=== PATIENT | male | born 1975 | race Caucasian/White ===

== ENCOUNTER 2021-05-22 14:29 | Outpatient (REF) | payer OTHER, SELFPAY ==
[2021-05-22 16:35] LABS: MANUAL DIFF FLAG NO
[2021-05-22 16:48] LABS: Basophils Absolute Auto 0.1 X10*3/uL (0.0-0.2); Basophils Percent Auto 0.8 % (0-2); Eosinophils Absolute Auto 0.1 X10*3/uL (0.0-0.4); Eosinophils Percent Auto 0.8 % (0-4); Hemoglobin 13.9 g/dl (14.0-18.0); Imm Gran Abs Auto 0.04 X10*3/uL (0.00-0.03); Imm Gran Pct Auto 0.6 % (0.0-0.4); Lymphocytes Absolute Auto 1.1 X10*3/uL (1.2-4.9); Lymphocytes Percent Auto 16.6 % (20-40); Mean Corpuscular HGB Conc 33.9 g/dl (31.0-36.0); Mean Corpuscular Hemoglobin 36.2 pg (27.0-33.0); Mean Corpuscular Volume 106.8 fL (80.0-98.0); Mean Platelet Volume 10.8 fL (9.4-12.4); Monocytes Absolute Auto 0.5 X10*3/uL (0.1-1.2); Monocytes Percent Auto 7.1 % (2-11); Neutrophils Absolute Auto 4.9 x10*3/uL (2.0-8.3); Neutrophils Percent Auto 74.1 % (45-73); Platelet Count 253 X10*3/uL (160-400); Red Blood Count 3.84 X10*6/uL (4.60-5.80); Red Cell Distribution Width 11.4 % (11.0-16.0); White Blood Count 6.6 X10*3/uL (4.8-10.8)
[2021-05-22 17:01] LABS: Alanine Aminotransferase 16 U/L (0-40); Albumin Level 4.5 g/dL (3.5-5.0); Alkaline Phosphatase 64 U/L (39-117); Anion Gap 16 (12-20); Aspartate Amino Transferase 22 U/L (5-37); Bilirubin Total 0.8 mg/dL (0.0-1.0); Blood Urea Nitrogen 23 mg/dL (9-16); Calcium 10.1 mg/dL (8.4-10.2); Carbon Dioxide 27 mmol/L (22-29); Chloride 101 mmol/L (96-108); Cholesterol 197 mg/dL; Estimated Glomerular Filt Rate > 60; Glucose Fasting 91 mg/dL (60-99); HDL Cholesterol 94 mg/dL; LDL Cholesterol Calculated 86 mg/dl; Potassium 3.6 mmol/L (3.3-5.1); Sodium 140 mmol/L (135-145); Total Protein 7.4 g/dL (6.5-8.0); Triglycerides 86 mg/dL
[2021-05-26 15:01] LABS: Vitamin D 25-OH, D2 <4 ng/mL; Vitamin D 25-OH, D3 14 ng/mL; Vitamin D 25-OH, Total 14 ng/mL (30-100)
== END 2021-05-22 14:30 | disposition home or self-care (01) ==
LOC: HO.HMGCLDS 14:29
PROVIDERS: PCP Internal Medicine; Visit Provider Internal Medicine
DX: Z00.01 Encounter for general adult medical examination with abnormal findings (principal); M54.16 Radiculopathy, lumbar region; R03.0 Elevated blood-pressure reading, without diagnosis of hypertension
CPT/HCPCS: 36415; 80053; 80061; 82306; 85025

== ENCOUNTER 2021-11-26 11:14 | Outpatient (REF) | payer OTHER, SELFPAY ==
[2021-11-26 13:34] LABS: MANUAL DIFF FLAG NO
[2021-11-26 13:41] LABS: Basophils Percent Auto 0.5 % (0-2); Eosinophils Absolute Auto 0.1 X10*3/uL (0.0-0.4); Eosinophils Percent Auto 1.4 % (0-4); Hematocrit 39.8 % (42.0-52.0); Hemoglobin 13.3 g/dl (14.0-18.0); Imm Gran Abs Auto 0.02 X10*3/uL (0.00-0.03); Imm Gran Pct Auto 0.4 % (0.0-0.4); Lymphocytes Absolute Auto 1.1 X10*3/uL (1.2-4.9); Lymphocytes Percent Auto 18.9 % (20-40); Mean Corpuscular HGB Conc 33.4 g/dl (31.0-36.0); Mean Corpuscular Hemoglobin 36.6 pg (27.0-33.0); Mean Corpuscular Volume 109.6 fL (80.0-98.0); Mean Platelet Volume 10.4 fL (9.4-12.4); Monocytes Absolute Auto 0.6 X10*3/uL (0.1-1.2); Monocytes Percent Auto 10.6 % (2-11); Neutrophils Absolute Auto 3.9 x10*3/uL (2.0-8.3); Neutrophils Percent Auto 68.2 % (45-73); Platelet Count 270 X10*3/uL (160-400); Red Blood Count 3.63 X10*6/uL (4.60-5.80); Red Cell Distribution Width 11.9 % (11.0-16.0); White Blood Count 5.7 X10*3/uL (4.8-10.8)
[2021-11-26 13:56] LABS: Alanine Aminotransferase 23 U/L (0-40); Albumin Level 4.4 g/dL (3.5-5.0); Alkaline Phosphatase 54 U/L (39-117); Anion Gap 12 (12-20); Aspartate Amino Transferase 25 U/L (5-37); Bilirubin Total 1.2 mg/dL (0.0-1.0); Blood Urea Nitrogen 19 mg/dL (9-16); Calcium 9.9 mg/dL (8.4-10.2); Carbon Dioxide 29 mmol/L (22-29); Chloride 100 mmol/L (96-108); Estimated Glomerular Filt Rate > 60; Glucose Random 103 mg/dL (60-115); Potassium 4.7 mmol/L (3.3-5.1); Sodium 136 mmol/L (135-145); Total Protein 7.4 g/dL (6.5-8.0)
[2021-11-26 14:11] LABS: TSH reflex Free T4 0.69 uIU/mL (0.32-4.0)
[2021-11-28 02:26] LABS: LDL Cholesterol Direct 89 mg/dL (<100)
== END 2021-11-26 11:15 | disposition home or self-care (01) ==
LOC: HO.HMGCLDS 11:14
PROVIDERS: PCP Internal Medicine; Visit Provider Internal Medicine
DX: I10 Essential (primary) hypertension (principal); M54.16 Radiculopathy, lumbar region
CPT/HCPCS: 36415; 80053; 83721; 84443; 85025

== ENCOUNTER 2022-07-28 09:43 | Outpatient (REF) | payer OTHER, SELFPAY ==
[2022-07-28 11:36] LABS: MANUAL DIFF FLAG NO
[2022-07-28 11:49] LABS: Basophils Absolute Auto 0.1 X10*3/uL (0.0-0.2); Basophils Percent Auto 0.9 % (0-2); Eosinophils Absolute Auto 0.1 X10*3/uL (0.0-0.4); Eosinophils Percent Auto 1.1 % (0-4); Hematocrit 40.6 % (42.0-52.0); Hemoglobin 13.6 g/dl (14.0-18.0); Imm Gran Abs Auto 0.03 X10*3/uL (0.00-0.03); Imm Gran Pct Auto 0.6 % (0.0-0.4); Lymphocytes Percent Auto 18.3 % (20-40); Mean Corpuscular HGB Conc 33.5 g/dl (31.0-36.0); Mean Corpuscular Volume 110.3 fL (80.0-98.0); Mean Platelet Volume 10.3 fL (9.4-12.4); Monocytes Absolute Auto 0.6 X10*3/uL (0.1-1.2); Monocytes Percent Auto 10.9 % (2-11); Neutrophils Absolute Auto 3.7 x10*3/uL (2.0-8.3); Neutrophils Percent Auto 68.2 % (45-73); Platelet Count 295 X10*3/uL (160-400); Red Blood Count 3.68 X10*6/uL (4.60-5.80); Red Cell Distribution Width 12.1 % (11.0-16.0); White Blood Count 5.4 X10*3/uL (4.8-10.8)
[2022-07-28 12:27] LABS: Alanine Aminotransferase 33 U/L (0-40); Albumin Level 4.3 g/dL (3.5-5.0); Alkaline Phosphatase 64 U/L (39-117); Anion Gap 15 (12-20); Aspartate Amino Transferase 30 U/L (5-37); Blood Urea Nitrogen 24 mg/dL (9-16); Calcium 9.9 mg/dL (8.4-10.2); Carbon Dioxide 26 mmol/L (22-29); Chloride 101 mmol/L (96-108); Estimated Glomerular Filt Rate > 60; Glucose Random 100 mg/dL (60-115); Potassium 4.8 mmol/L (3.3-5.1); Sodium 137 mmol/L (135-145)
[2022-07-28 12:31] LABS: TSH reflex Free T4 0.74 uIU/mL (0.32-4.0)
[2022-07-29 08:03] LABS: LDL Cholesterol Direct 86 mg/dL (<100)
== END 2022-07-28 09:44 | disposition home or self-care (01) ==
LOC: HO.HMGCLDS 09:43
PROVIDERS: PCP Internal Medicine; Visit Provider Internal Medicine
DX: F41.1 Generalized anxiety disorder (principal); R49.0 Dysphonia; I10 Essential (primary) hypertension
CPT/HCPCS: 36415; 80053; 83721; 84443; 85025

== ENCOUNTER → 2023-04-17 12:37 | Outpatient (AMB) | payer OTHER, SELFPAY ==
--- NOTE | 2023-04-17 12:40 | A.OFFPC_ITS ---
Vital Signs 04/17/23 12:41 Height 6 ft 1 in Weight 171 lb 4 oz BMI 22.6 BP 140/88 H Blood Pressure Location Rt brachial Position Sitting Pulse 70 Pulse Source Pulse Oximeter Pulse Oximetry (%) 96 Oxygen Delivery Method Room Air Intake Visit Reasons: 5 month follow up Allergies ENVIRONMENTAL Allergy (Unknown, Uncoded 03/28/22 12:21) HIVES, WATERY EYES,SNEEZING. Environmental Allergy (Unknown, Uncoded 03/28/22 12:21) unknown Methocarbomal Adverse Reaction (Unknown, Uncoded 03/28/22 12:21) nausea and vomiting Medication List - Last Reconciled 04/17/23 by Cristel Gan MD atenolol 50 mg PO DAILY 90 days [Blood pressure monitor As directed] escitalopram oxalate 5 mg PO DAILY 30 days gabapentin ER (Gralise) 1,800 mg PO DAILY tizanidine 0 mg PO valsartan 40 mg PO ONCE 90 days Tobacco use date assessed: 04/17/23 Dental Screening Dental Screen Date: 04/17/23 Did you have a dental visit in the last 12 months?: Yes Did you have a dental problem in the last 6 months where you did not have access to dental care?: No Was dental information given to patient?: Patient has dentist HPI 5 month follow up HPI Details Patient is a 47-year-old gentleman came in today for his regular follow-up appointment Hypertension: pt is on atenolol 50 mg and valsartan 40 mg, no side effects His blood pressure is fluctuating at home he tells me, once in awhile he does monitor, sometime his blood pressure is as high as 170 he tells me and then he takes double dose of his blood pressure medication His blood pressure is 140 systolic today, patient will start monitoring it regularly and will send me a message through the portal. We will decide whether to increase his medication or not. anxiety is stable as well, continue Lexopro 5 mg He forgot to do labs, patient reminded He does use alcohol, patient says that once in a while when he wakes up in morning he feels nausea and then he vomits We talked about the alcohol use and acid reflux. I have sent omeprazole 20 mg capsules he is to start taking 1 at night Also I would recommend to stop drinking alcohol altogether. Patient have appointment in July for physical exam Tetanus vaccine was given He declines flu vaccine [facility] Medical History Eczema Hypertension Family History Father Myocardial infarct Social History Housing: Other Patient Tobacco Use Status: Former Tobacco user Tobacco use type: Cigarette e-Cigarette/Vaping Use: Never Used service: No Current occupational status: employed Cognitive needs: No Hearing needs: No Vision needs: Yes Questionnaire PHQ-9 Over the last 2 weeks, how often have you been bothered by any of the following problems? 1. Little interest or pleasure in doing things: more than half the days 2. Feeling down, depressed, or hopeless: several days 3. Trouble falling or staying asleep, or sleeping too much: several days 4. Feeling tired or having little energy: not at all 5. Poor appetite or overeating: not at all 6. Feeling bad about yourself - or that you are a failure or have let yourself or your family down: not at all 7. Trouble concentrating on things, such as reading the newspaper or watching television: not at all 8. Moving or speaking so slowly that other people could have noticed. Or the opposite - being so fidgety or restless that you have been moving around a lot more than usual: several days 9. Thoughts that you would be better off or of hurting yourself in some way: not at all Total score: 5 Depression Screening Interpretation: Negative Depression Screening Done: Yes 04266 - PHQ-9 Billing: Yes Source: Developed by Drs. Cale Cisneros, Yasmine Sullivan, Rodney Parisi and colleagues, with an educational juanjose from [employer]. Thrive Questionnaire Date Thrive assessed: 04/17/23 I am a: Patient What is your living situation today?: I have a steady place to live Within the past 12 months, did the food you bought not last and you didn't have the money to get more?: Never true Within the past 12 months, did you worry whether your food would run out before you got money to buy more?: Never true Do you have trouble paying for medicines?: No Do you have trouble getting transportation to medical appointments?: No Do you have trouble paying your heating and electricity bill?: No Do you have trouble taking care of your child, family member or friend?: Yes Do you have trouble with day-to-day activities such as bathing, preparing meals, shopping, managing finances, etc.?: No Are you currently unemployed and looking for a job?: No Are you interested in more education?: No Please select the resources that you would like help with: None Currently or been in a relationship where the following occur: no concerns reported AUDIT C Alcohol Use Questionnaire (AUDIT-C) 1. How often do you have a drink containing alcohol?: 2-3 times a week 2. How many drinks containing alcohol do you have on a typical day when you are drinking?: 1 or 2 3. How often do you have six or more drinks on one occasion?: Never Total Score: 3 Score Reviewed/Action Taken: Yes ELISA-7 AMB Questionnaire ELISA-7 Date ELISA - 7 assessed: 04/17/23 Feeling nervous, anxious, or on edge: 1 = Several days Not being able to stop or control worryin = Several days Worrying too much about different things: 1 = Several days Trouble relaxin = Not at all Being so restless that it is hard to sit still: 0 = Not at all Becoming easily annoyed or irritable: 0 = Not at all Feeling afraid as if something awful might happen: 0 = Not at all Total ELISA-7 score (0-4 normal; 5-9 mild; 10-14 moderate; 15-21 severe): 3 Source: Developed by Drs. Cale Cisneros, Yasmine Sullivan, Rodney Parisi and colleagues, with an educational juanjose from [employer]. ELISA-7 Assessment Billing ELISA-7 Assessment Tool: ELISA-7 Assessment [id number] Review of Systems Const Denies chills and Denies fever(s) ENT Denies epistaxis and Denies nasal discharge Card Denies chest pain Resp Denies chest congestion, Denies cough and Denies hemoptysis GI Denies diarrhea Skin/Breast Denies rash Neuro Reports no additional complaints Psych Reports no additional complaints Endo Reports no additional complaints Physical exam (Primary Care) Vital Signs: Last Vital Signs Pulse 70 04/17/23 12:41 BP 140/88 H 04/17/23 12:41 Pulse Ox 96 04/17/23 12:41 Oxygen Delivery Method Room Air 04/17/23 12:41 BMI result Body Mass Index 22.6 Tobacco/Smoking Status: Tobacco use Status Tobacco use date assessed 04/17/23 04/17/23 12:41 Patient Tobacco Use Status Former Tobacco user 04/17/23 12:41 Tobacco use type Cigarette 04/17/23 12:41 e-Cigarette/Vaping Use Never Used 04/17/23 12:41 PHQ-9: PHQ-9 Score PHQ-9: Total score 5 04/17/23 13:17 Depression Screening Interpretation: Negative Thrive Assessment: Date of Thrive Assessment Date Thrive assessed 04/17/23 04/17/23 13:17 Currently or been in a relationship where the following occur: no concerns reported Const General: cooperative, comfortable and no acute distress Orientation/consciousness: patient oriented x3 HENMT Head: Yes normocephalic Eyes General: appearance normal, both eyes and all related structures Neck Neck: Yes supple Resp Effort & Inspection: normal respiratory effort, no cough and no stridor Cardio Rhythm: regular rhythm Heart sounds: S1 normal heart sound present and S2 normal heart sound present Skin General skin exam: turgor normal Neuro General: patient oriented x3, tone normal and moves all extremities Extrem Right lower extremity: no edema Left lower extremity: no edema Immunizations Boostrix Tdap 2.5 Lf unit-8 mcg-5 Lf/0.5 mL intramuscular syringe Performing Provider: Cristel Gan MD Performing Location: [facility] Administered by: Bettie Beebe CMA on 04/17/23 13:14 Dose Route Admin Location Dispensed Lot Number Expiration Date [employer]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 Eligible 04/17/23 Private Assessment and Plan Assessment & Plan (1) Essential hypertension: Code(s): I10 - Essential (primary) hypertension (2) Vitamin D deficiency: Code(s): E55.9 - Vitamin D deficiency, unspecified (3) Anxiety, generalized: Code(s): F41.1 - Generalized anxiety disorder (4) Vomiting: Code(s): R11.10 - Vomiting, unspecified Qualifiers: Nausea presence: with nausea Vomiting type: bilious vomiting Qualified Code(s): R11.14 - Bilious vomiting (5) Alcohol use: Code(s): Z78.9 - Other specified health status Plan Patient is a 47-year-old gentleman came in today for his regular follow-up kellen ointment Hypertension: pt is on atenolol 50 mg and valsartan 40 mg, no side effects His blood pressure is fluctuating at home he tells me, once in awhile he does monitor, sometime his blood pressure is as high as 170 he tells me and then he takes double dose of his blood pressure medication His blood pressure is 140 systolic today, patient will start monitoring it regularly and will send me a message through the portal. We will decide whether to increase his medication or not. anxiety is stable as well, continue Lexopro 5 mg He forgot to do labs, patient reminded He does use alcohol, patient says that once in a while when he wakes up in morning he feels nausea and then he vomits We talked about the alcohol use and acid reflux. I have sent omeprazole 20 mg capsules he is to start taking 1 at night Also I would recommend to stop drinking alcohol altogether. Patient have appointment in July for physical exam Tetanus vaccine was given He declines flu vaccine Orders: Orders TDaP Immunization Today Z23 - Encounter for immunization Medications: New omeprazole 20 mg PO BEDTIME 90 caps 0RF Refilled valsartan 40 mg PO ONCE 90 tabs 1RF 90 days atenolol 50 mg PO DAILY 90 tabs 1RF 90 days escitalopram oxalate 5 mg PO DAILY 90 tabs 3RF 30 days Coding Level of Care Code Est Pt Level 4 (50442) Diagnoses Essential hypertension I10 Vitamin D deficiency E55.9 Anxiety, generalized F41.1 Bilious vomiting with nausea R11.14 Nausea presence: with nausea Vomiting type: bilious vomiting Alcohol use Z78.9 Additional Codes ELISA-7 Assessment Billing - ELISA-7 Assessment Tool: ELISA-7 Assessment [id number] ([id number])
[2023-04-17 12:41] VITALS: BP 140/88; PULSE 70; O2SAT 96; BMI 22.6
== END ==
PROVIDERS: PCP Internal Medicine; Visit Provider Internal Medicine
DX: I10 Essential (primary) hypertension (principal); E55.9 Vitamin D deficiency, unspecified; F41.1 Generalized anxiety disorder; R11.14 Bilious vomiting; Z78.9 Other specified health status; Z23 Encounter for immunization
CPT/HCPCS: 90471; 90715; 99214

== ENCOUNTER 2023-08-05 11:22 | Outpatient (AMB) | payer OTHER, SELFPAY ==
[2023-08-05 11:25] VITALS: BP 128/82; PULSE 65; O2SAT 98; BMI 22.6
--- NOTE | 2023-08-05 11:25 | A.OFFPC_ITS ---
Vital Signs 08/05/23 11:25 Height 6 ft 1 in Weight 171 lb 8 oz BMI 22.6 BP 128/82 Blood Pressure Location Lt brachial Position Sitting Pulse 65 Pulse Source Pulse Oximeter Pulse Oximetry (%) 98 Oxygen Delivery Method Room Air Intake Visit Reasons: Annual PE Allergies ENVIRONMENTAL Allergy (Unknown, Uncoded 03/28/22 12:21) HIVES, WATERY EYES,SNEEZING. Environmental Allergy (Unknown, Uncoded 03/28/22 12:21) unknown Methocarbomal Adverse Reaction (Unknown, Uncoded 03/28/22 12:21) nausea and vomiting Medication List - Last Reconciled 08/05/23 by Cristel Gan MD atenolol 50 mg PO DAILY 90 days [Blood pressure monitor As directed] escitalopram oxalate 5 mg PO DAILY 30 days gabapentin ER (Gralise) 1,800 mg PO DAILY omeprazole 20 mg PO BEDTIME tizanidine 0 mg PO valsartan 40 mg PO ONCE 90 days Tobacco use date assessed: 08/05/23 Dental Screening Dental Screen Date: 08/05/23 HPI Annual PE HPI Details Patient is a 47-year-old gentleman came in today for physical exam Blood pressure is stable patient is on atenolol and valsartan He is taking Lexapro for anxiety On examination today I see a lot of scratch martinez both hands which seems to be chronic and new ones He says that he has a cat and he is allergic to cat but he he likes to keep the cat I have placed referral to gastroenterology for colonoscopy Patient smoke cannabis every day, and drink alcohol occasionally PFSH Medical History Eczema Hypertension Family History Father Myocardial infarct Social History Housing: Other Patient Tobacco Use Status: Former Tobacco user Tobacco use type: Cigarette e-Cigarette/Vaping Use: Never Used service: No Current occupational status: employed Cognitive needs: No Hearing needs: No Vision needs: Yes Questionnaire PHQ-9 Over the last 2 weeks, how often have you been bothered by any of the following problems? 1. Little interest or pleasure in doing things: not at all 2. Feeling down, depressed, or hopeless: not at all 3. Trouble falling or staying asleep, or sleeping too much: not at all 4. Feeling tired or having little energy: not at all 5. Poor appetite or overeating: not at all 6. Feeling bad about yourself - or that you are a failure or have let yourself or your family down: not at all 7. Trouble concentrating on things, such as reading the newspaper or watching television: not at all 8. Moving or speaking so slowly that other people could have noticed. Or the opposite - being so fidgety or restless that you have been moving around a lot more than usual: not at all 9. Thoughts that you would be better off or of hurting yourself in some way: not at all Total score: 0 Depression Screening Interpretation: Negative Depression Screening Done: Yes 28623 - PHQ-9 Billing: Yes Source: Developed by Drs. Cale Cisneros, Yasmine Sullivan, Rodney Parisi and colleagues, with an educational juanjose from [employer] Thrive Questionnaire Date Thrive assessed: 08/05/23 I am a: Patient What is your living situation today?: I have a steady place to live Within the past 12 months, did the food you bought not last and you didn't have the money to get more?: Never true Within the past 12 months, did you worry whether your food would run out before you got money to buy more?: Never true Do you have trouble paying for medicines?: No Do you have trouble getting transportation to medical appointments?: No Do you have trouble paying your heating and electricity bill?: No Do you have trouble taking care of your child, family member or friend?: No Do you have trouble with day-to-day activities such as bathing, preparing meals, shopping, managing finances, etc.?: No Are you currently unemployed and looking for a job?: No Are you interested in more education?: No Please select the resources that you would like help with: None Currently or been in a relationship where the following occur: no concerns repo rted THRIVE Score: 0 ELISA-7 AMB Questionnaire ELISA-7 Date ELISA - 7 assessed: 08/05/23 Feeling nervous, anxious, or on edge: 2 = More than half the days Not being able to stop or control worryin = More than half the days Worrying too much about different things: 2 = More than half the days Trouble relaxin = Several days Being so restless that it is hard to sit still: 1 = Several days Becoming easily annoyed or irritable: 1 = Several days Feeling afraid as if something awful might happen: 0 = Not at all Total ELISA-7 score (0-4 normal; 5-9 mild; 10-14 moderate; 15-21 severe): 9 Source: Developed by Drs. Cale Cisneros, Yasmine Sullivan, Rodney Parisi and colleagues, with an educational juanjose from [employer] ELISA-7 Assessment Billing ELISA-7 Assessment Tool: ELISA-7 Assessment 56753 Review of Systems Const Denies chills, Denies fever(s) and Denies headache(s) Eyes Denies blurry vision ENT Denies headache(s), Denies nasal discharge, Denies nasal obstruction, Denies odynophagia and Denies sinus pain Card Denies chest pain at rest and Denies chest pain with activity Resp Denies cough and Denies hemoptysis GI Denies diarrhea, Denies odynophagia, Denies vomiting and Denies hematemesis Reports as per HPI Musc Denies abnormal gait Skin/Breast Reports as per HPI Neuro Denies Neuro-related abnormal movements, Denies Abnormal speech present, Denies abnormal gait, Denies headache(s) and Denies Sensory deficit (Neuro) Psych Denies mood swings and Denies paranoia Endo Reports as per HPI Cole/Lymph Reports as per HPI Aller/Immun Reports as per HPI Physical exam (Primary Care) Vital Signs: Last Vital Signs Pulse 65 08/05/23 11:25 BP 128/82 08/05/23 11:25 Pulse Ox 98 08/05/23 11:25 Oxygen Delivery Method Room Air 08/05/23 11:25 BMI result Body Mass Index 22.6 Tobacco/Smoking Status: Tobacco use Status Tobacco use date assessed 08/05/23 08/05/23 11:26 Patient Tobacco Use Status Former Tobacco user 08/05/23 11:26 Tobacco use type Cigarette 08/05/23 11:26 e-Cigarette/Vaping Use Never Used 08/05/23 11:26 PHQ-9: PHQ-9 Score PHQ-9: Total score 0 08/05/23 11:35 Depression Screening Interpretation: Negative Thrive Assessment: Date of Thrive Assessment Date Thrive assessed 08/05/23 08/05/23 11:35 Currently or been in a relationship where the following occur: no concerns reported Const General: cooperative, comfortable and no acute distress Orientation/consciousness: patient oriented x3 HENIA Head: Yes normocephalic and Yes atraumatic Eyes General: appearance normal, both eyes and all related structures Pupils: Equal, round and reactive pupils present EOM: EOMs intact bilaterally Neck Neck: Yes supple and No lymphadenopathy Thyroid: Thyroid normal Lymphatic: no lymphadenopathy noted Resp Effort & Inspection: normal respiratory effort and able to speak in complete sentences Auscultation: clear to auscultation bilaterally Cardio Heart sounds: S1 normal heart sound present and S2 normal heart sound present GI Palpation (GI): Soft to palpation and nontender Auscultation: normal bowel sounds General: Yes no CVA tenderness Back/Spine/Pelvis Back: no CVA tenderness Skin Other: Lots new old scratch martinez both hand dorsal aspect General skin exam: elasticity normal and turgor normal Neuro General: patient oriented x3 and gait normal Cranial nerves: Yes Equal, round and reactive pupils present Speech: No Abnormal speech present Sensory Exam: No Sensory deficit (Neuro) Coordination: tandem gait normal and Romberg test negative Extrem General: Yes normal exam except as noted and No edema Assessment and Plan Assessment & Plan (1) Encounter for general adult medical examination with abnormal findings: Code(s): Z00.01 - Encounter for general adult medical examination with abnormal findings (2) Essential hypertension: Code(s): I10 - Essential (primary) hypertension (3) Anxiety, generalized: Code(s): F41.1 - Generalized anxiety disorder (4) Vitamin D deficiency: Code(s): E55.9 - Vitamin D deficiency, unspecified (5) Colon cancer screening: Code(s): Z12.11 - Encounter for screening for malignant neoplasm of colon (6) Cannabis dependence: Code(s): F12.20 - Cannabis dependence, uncomplicated (7) Cat allergies: Code(s): J30.81 - Allergic rhinitis due to animal (cat) (dog) hair and dander Plan Patient is a 47-year-old gentleman came in today for physical exam Blood pressure is stable patient is on atenolol and valsartan He is taking Lexapro for anxiety On examination today I see a lot of scratch martinez both hands which seems to be chronic and new ones He says that he has a cat and he is allergic to cat but he he likes to keep the cat I have placed referral to gastroenterology for colonoscopy Patient smoke cannabis every day, and drink alcohol occasionally Follow-up 4 months Labs to be done today Orders: Orders Complete Blood Count Auto Diff Today E55.9 - Vitamin D deficiency, unspecified, F41.1 - Generalized anxiety disorder, I10 - Essential (primary) hypertension, Z00.01 - Encounter for general adult medical examination with abnormal findings Comprehensive Met. Panel Today E55.9 - Vitamin D deficiency, unspecified, F41.1 - Generalized anxiety disorder, I10 - Essential (primary) hypertension, Z00.01 - Encounter for general adult medical examination with abnormal findings Vitamin D 25-OH (D2 and D3) Today E55.9 - Vitamin D deficiency, unspecified, F41.1 - Generalized anxiety disorder, I10 - Essential (primary) hypertension, Z00.01 - Encounter for general adult medical examination with abnormal findings Referrals Gastroenterology Referral Z12.11 - Encounter for screening for malignant neoplasm of colon Coding Level of Care Code Est Pt Prev Care 40-64y(01688) Diagnoses Encounter for general adult medical examination with abnormal findings Z00.01 Essential hypertension I10 Anxiety, generalized F41.1 Vitamin D deficiency E55.9 Colon cancer screening Z12.11 Cannabis dependence F12.20 Cat allergies J30.81 Additional Codes ELISA-7 Assessment Billing - ELISA-7 Assessment Tool: ELISA-7 Assessment [id number] ([id number])
== END 2023-08-05 11:47 | disposition home or self-care (01) ==
PROVIDERS: Visit Provider Internal Medicine
DX: Z00.00 Encounter for general adult medical examination without abnormal findings (principal); F12.20 Cannabis dependence, uncomplicated; I10 Essential (primary) hypertension; J30.81 Allergic rhinitis due to animal (cat) (dog) hair and dander; F41.1 Generalized anxiety disorder; E55.9 Vitamin D deficiency, unspecified; Z12.11 Encounter for screening for malignant neoplasm of colon
CPT/HCPCS: 99396

== ENCOUNTER 2023-08-12 10:09 | Outpatient (REF) | payer OTHER, SELFPAY ==
[2023-08-12 13:36] LABS: MANUAL DIFF FLAG NO
[2023-08-12 13:53] LABS: Basophils Absolute Auto 0.1 X10*3/uL (0.0-0.2); Basophils Percent Auto 0.9 % (0-2); Eosinophils Percent Auto 0.7 % (0-4); Hematocrit 40.5 % (42.0-52.0); Hemoglobin 13.6 g/dl (14.0-18.0); Imm Gran Abs Auto 0.03 X10*3/uL (0.00-0.03); Imm Gran Pct Auto 0.6 % (0.0-0.4); Lymphocytes Absolute Auto 1.3 X10*3/uL (1.2-4.9); Lymphocytes Percent Auto 23.3 % (20-40); Mean Corpuscular HGB Conc 33.6 g/dl (31.0-36.0); Mean Corpuscular Hemoglobin 36.6 pg (27.0-33.0); Mean Corpuscular Volume 108.9 fL (80.0-98.0); Mean Platelet Volume 10.1 fL (9.4-12.4); Monocytes Absolute Auto 0.5 X10*3/uL (0.1-1.2); Monocytes Percent Auto 8.9 % (2-11); Neutrophils Absolute Auto 3.5 x10*3/uL (2.0-8.3); Neutrophils Percent Auto 65.6 % (45-73); Platelet Count 268 X10*3/uL (160-400); Red Blood Count 3.72 X10*6/uL (4.60-5.80); White Blood Count 5.4 X10*3/uL (4.8-10.8)
[2023-08-12 14:14] LABS: Alanine Aminotransferase 25 U/L (0-40); Albumin Level 4.4 g/dL (3.5-5.0); Alkaline Phosphatase 58 U/L (39-117); Anion Gap 11 (12-20); Aspartate Amino Transferase 31 U/L (5-37); Bilirubin Total 0.8 mg/dL (0.0-1.0); Blood Urea Nitrogen 22 mg/dL (9-16); Carbon Dioxide 28 mmol/L (22-29); Chloride 101 mmol/L (96-108); Estimated Glomerular Filt Rate > 60; Glucose Random 94 mg/dL (60-115); Sodium 136 mmol/L (135-145); Total Protein 7.5 g/dL (6.5-8.0)
[2023-08-16 17:03] LABS: Vitamin D 25-OH, D2 <4 ng/mL; Vitamin D 25-OH, D3 11 ng/mL; Vitamin D 25-OH, Total 11 ng/mL (30-100)
== END 2023-08-12 10:10 | disposition home or self-care (01) ==
LOC: HO.HMGCLDS 10:09
PROVIDERS: PCP Internal Medicine; Visit Provider Internal Medicine
DX: Z00.01 Encounter for general adult medical examination with abnormal findings (principal); M20.10 Hallux valgus (acquired), unspecified foot; E55.9 Vitamin D deficiency, unspecified; F41.1 Generalized anxiety disorder; I10 Essential (primary) hypertension
CPT/HCPCS: 36415; 80053; 82306; 85025

== ENCOUNTER 2023-11-18 10:07 | Outpatient (AMB) | payer OTHER, SELFPAY ==
--- NOTE | 2023-11-18 10:39 | MHC.PC.OV ---
Intake Visit Reasons: 4M F/U Allergies ENVIRONMENTAL Allergy (Unknown, Uncoded 03/28/22 12:21) HIVES, WATERY EYES,SNEEZING. Environmental Allergy (Unknown, Uncoded 03/28/22 12:21) unknown Methocarbomal Adverse Reaction (Unknown, Uncoded 03/28/22 12:21) nausea and vomiting Medication List - Last Reconciled 11/18/23 by Cristel Gan MD atenolol 50 mg PO DAILY 90 days [Blood pressure monitor As directed] escitalopram oxalate 5 mg PO DAILY 30 days gabapentin ER (Gralise) 1,800 mg PO DAILY omeprazole 20 mg PO BEDTIME tizanidine 0 mg PO valsartan 40 mg PO ONCE 90 days Tobacco use date assessed: 11/18/23 Dental Screening Dental Screen Date: 11/18/23 Did you have a dental visit in the last 12 months?: Yes Did you have a dental problem in the last 6 months where you did not have access to dental care?: No Was dental information given to patient?: Patient has dentist HPI 4M F/U HPI Details 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 [facility] yesterday with CC of pain left shoulder which started acutely , non traumatic patient was evaluated and discharge with diagnosis of muscular pain no fracture he was given Lidocain patches patient states he had similar pain right shoulder in the past and he ended up having sugary by [employer] he is requesting pain management and ref to Orthopedic I have sent 7 tabs of percocet to be taken only at night we will make f.u apt in 7 days patient is enquiring about FMLA, I have directed him to HR department of his truck company [employer] [facility] Medical History Eczema Hypertension Family History Father Myocardial infarct Social History Housing: Other Patient Tobacco Use Status: Former Tobacco user Tobacco use type: Cigarette e-Cigarette/Vaping Use: Never Used service: No Current occupational status: employed Cognitive needs: No Hearing needs: No Vision needs: Yes Questionnaire Thrive Questionnaire Date Thrive assessed: 08/05/23 AUDIT C Alcohol Use Questionnaire (AUDIT-C) 1. How often do you have a drink containing alcohol?: 2-3 times a week 2. How many drinks containing alcohol do you have on a typical day when you are drinking?: 1 or 2 3. How often do you have six or more drinks on one occasion?: Never Total Score: 3 Score Reviewed/Action Taken: Yes ELISA-7 AMB Questionnaire ELISA-7 Date ELISA - 7 assessed: 08/05/23 Source: Developed by Drs. Cale Cisneros, Yasmine Sullivan, Rodney Parisi and colleagues, with an educational juanjose from [email or web address]. Review of Systems Const Denies chills and Denies fever(s) ENT Denies epistaxis and Denies nasal discharge Card Denies chest pain Resp Denies chest congestion, Denies cough and Denies hemoptysis GI Denies diarrhea and Denies nausea Skin/Breast Denies rash Neuro Reports no additional complaints Psych Reports no additional complaints Endo Reports no additional complaints Physical exam (Primary Care) Tobacco/Smoking Status: Tobacco use Status Tobacco use date assessed 11/18/23 11/18/23 10:40 Patient Tobacco Use Status Former Tobacco user 11/18/23 10:40 Tobacco use type Cigarette 11/18/23 10:40 e-Cigarette/Vaping Use Never Used 11/18/23 10:40 Thrive Assessment: Date of Thrive Assessment Date Thrive assessed 08/05/23 11/18/23 10:40 Telehealth Telehealth Telehealth Platform[facility] Location of provider rendering services: practice address Location of patient: address on file Patient Identification confirmed using: Name, : Yes Telehealth method: video (was attempted) Patient verbally consented to treatment: Yes Patient verbally consented to billing insurance company: Yes Patient informed of any privacy concerns related to visit: Yes Assessment and Plan Assessment & Plan (1) Pain management: Code(s): R52 - Pain, unspecified (2) Acute pain of left shoulder: Code(s): M25.512 - Pain in left shoulder Plan 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 [facility] yesterday with CC of pain left shoulder which started acutely , non traumatic patient was evaluated and discharge with diagnosis of muscular pain no fracture he was given Lidocain patches patient states he had similar pain right shoulder in the past and he ended up having sugary by [employer] he is requesting pain management and ref to Orthopedic I have sent 7 tabs of percocet to be taken only at night we will make f.u apt in 7 days patient is enquiring about FMLA, I have directed him to HR department of his [employer] Orders: Referrals Orthopedics Referral M25.512 - Pain in left shoulder Medications: New oxycodone-acetaminophen 5-325 mg (Percocet) Partial Fill upon patient request. 1 tab PO DAILY PRN 7 tabs 0RF pain Coding Level of Care Code Tele Est Pt Level 3 (89208) Diagnoses Pain management R52 Acute pain of left shoulder M25.512
== END 2023-11-18 12:16 | disposition home or self-care (01) ==
LOC: HO.HMGC 10:07
PROVIDERS: PCP Internal Medicine; Visit Provider Internal Medicine
DX: R52 Pain, unspecified (principal); M25.512 Pain in left shoulder
CPT/HCPCS: 99213

== ENCOUNTER 2023-11-25 09:20 | Outpatient (AMB) | payer OTHER, SELFPAY ==
[2023-11-25 09:25] VITALS: BP 122/80; PULSE 72; O2SAT 95; BMI 21.9
--- NOTE | 2023-11-25 09:25 | A.OFFPC_ITS ---
Vital Signs 11/25/23 09:25 Height 6 ft 1 in Weight 166 lb 6 oz BMI 21.9 BP 122/80 Blood Pressure Location Rt brachial Position Sitting Pulse 72 Pulse Source Pulse Oximeter Pulse Oximetry (%) 95 Oxygen Delivery Method Room Air Intake Visit Reasons: Follow Up~ Allergies ENVIRONMENTAL Allergy (Unknown, Uncoded 03/28/22 12:21) HIVES, WATERY EYES,SNEEZING. Environmental Allergy (Unknown, Uncoded 03/28/22 12:21) unknown Methocarbomal Adverse Reaction (Unknown, Uncoded 03/28/22 12:21) nausea and vomiting Medication List - Last Reconciled 11/25/23 by Cristel Gan MD atenolol 50 mg PO DAILY 90 days [Blood pressure monitor As directed] escitalopram oxalate 5 mg PO DAILY 30 days gabapentin ER (Gralise) 1,800 mg PO DAILY omeprazole 20 mg PO BEDTIME oxycodone-acetaminophen 5-325 mg (Percocet) 1 tab PO DAILY PRN tizanidine 0 mg PO valsartan 40 mg PO ONCE 90 days Tobacco use date assessed: 11/25/23 Dental Screening Dental Screen Date: 11/25/23 Did you have a dental visit in the last 12 months?: Yes Did you have a dental problem in the last 6 months where you did not have access to dental care?: No Was dental information given to patient?: Patient has dentist HPI Follow Up~ HPI Details Patient is 48-year-old gentleman came in today for follow-up appointment for left shoulder pain 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 Patient was evaluated at [facility] few days ago For left shoulder pain which started acutely without any trauma patient was evaluated and discharge with diagnosis of muscular pain no fracture he was given Lidocain patches I prescribed Percocet to be taken at night which is helping somewhat He is also on high-dose gabapentin from pain management for another medical problem I have filled Percocet tablets for him, I have also sent diclofenac 75 mg that he is to take with food at night Patient was instructed not to take any other pain medications with these scripts. He has appointment coming up with [facility] on December 08 Once FMLA paperwork is filled he want that faxed over to [phone] [facility] Medical History Eczema Hypertension Family History Father Myocardial infarct Social History Housing: Other Patient Tobacco Use Status: Former Tobacco user Tobacco use type: Cigarette e-Cigarette/Vaping Use: Never Used service: No Current occupational status: employed Cognitive needs: No Hearing needs: No Vision needs: Yes Questionnaire Thrive Questionnaire Date Thrive assessed: 08/05/23 AUDIT C Alcohol Use Questionnaire (AUDIT-C) 1. How often do you have a drink containing alcohol?: 2-3 times a week 2. How many drinks containing alcohol do you have on a typical day when you are drinking?: 1 or 2 3. How often do you have six or more drinks on one occasion?: Never Total Score: 3 Score Reviewed/Action Taken: Yes ELISA-7 AMB Questionnaire ELISA-7 Date ELISA - 7 assessed: 08/05/23 Source: Developed by Drs. Cale Cisneros, Yasmine Sullivan, Rodney Parisi and colleagues, with an educational juanjose from [employer]. Review of Systems Const Denies chills and Denies fever(s) ENT Denies epistaxis and Denies nasal discharge Card Denies chest pain Resp Denies chest congestion, Denies cough and Denies hemoptysis GI Denies diarrhea and Denies nausea Skin/Breast Denies rash Neuro Reports no additional complaints Psych Reports no additional complaints Endo Reports no additional complaints Physical exam (Primary Care) Vital Signs: Last Vital Signs Pulse 72 11/25/23 09:25 BP 122/80 11/25/23 09:25 Pulse Ox 95 11/25/23 09:25 Oxygen Delivery Method Room Air 11/25/23 09:25 BMI result Body Mass Index 21.9 Tobacco/Smoking Status: Tobacco use Status Tobacco use date assessed 11/25/23 11/25/23 09:28 Patient Tobacco Use Status Former Tobacco user 11/25/23 09:28 Tobacco use type Cigarette 11/25/23 09:28 e-Cigarette/Vaping Use Never Used 11/25/23 09:28 Thrive Assessment: Date of Thrive Assessment Date Thrive assessed 08/05/23 11/25/23 09:28 Const General: cooperative, comfortable and no acute distress Orientation/consciousness: patient oriented x3 HENIA Head: Yes normocephalic Eyes General: appearance normal, both eyes and all related structures Neck Neck: Yes supple Resp Effort & Inspection: normal respiratory effort, no cough and no stridor Cardio Rhythm: regular rhythm Heart sounds: S1 normal heart sound present and S2 normal heart sound present Skin General skin exam: turgor normal Neuro General: patient oriented x3, tone normal and moves all extremities Extrem Other: Left shoulder in sling, patient is not able to move it because of pain, able to move his hand without any pain and fingers, vascular intact sensory intact Right lower extremity: no edema Left lower extremity: no edema Assessment and Plan Assessment & Plan (1) Pain management: Code(s): R52 - Pain, unspecified (2) Acute pain of left shoulder: Code(s): M25.512 - Pain in left shoulder (3) Unable to adjust to work situation: Code(s): Z56.89 - Other problems related to employment Plan Patient is 48-year-old gentleman came in today for follow-up appointment for left shoulder pain 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 Patient was evaluated at [facility] few days ago For left shoulder pain which started acutely without any trauma patient was evaluated and discharge with diagnosis of muscular pain no fracture he was given Lidocain patches I prescribed Percocet to be taken at night which is helping somewhat He is also on high-dose gabapentin from pain management for another medical problem I have filled Percocet tablets for him, I have also sent diclofenac 75 mg that he is to take with food at night Patient was instructed not to take any other pain medications with these scripts. He has appointment coming up with [facility] on December 08 Once FMLA paperwork is filled he want that faxed over to [phone] Medications: New diclofenac sodium Take medication with food 75 mg PO BID 10 days 20 tabs 0RF pain Refilled oxycodone-acetaminophen 5-325 mg (Percocet) Partial Fill upon patient request. 1 tab PO DAILY PRN 14 tabs 0RF pain Coding Level of Care Code Est Pt Level 4 (01486) Diagnoses Pain management R52 Acute pain of left shoulder M25.512 Unable to adjust to work situation Z56.89
== END 2023-11-25 13:27 | disposition home or self-care (01) ==
PROVIDERS: PCP Internal Medicine; Visit Provider Internal Medicine
DX: M25.512 Pain in left shoulder (principal); Z56.89 Other problems related to employment
CPT/HCPCS: 99214

== ENCOUNTER 2024-01-01 09:21 | Outpatient (AMB) | payer OTHER, SELFPAY ==
--- NOTE | 2024-01-01 09:23 | A.OFFPC_ITS ---
Intake Visit Reasons: FMLA Paperwork~ [phone] Allergies ENVIRONMENTAL Allergy (Unknown, Uncoded 03/28/22 12:21) HIVES, WATERY EYES,SNEEZING. Environmental Allergy (Unknown, Uncoded 03/28/22 12:21) unknown Methocarbomal Adverse Reaction (Unknown, Uncoded 03/28/22 12:21) nausea and vomiting Medication List - Last Reconciled 01/01/24 by Cristel Gan MD atenolol 50 mg PO DAILY 90 days [Blood pressure monitor As directed] diclofenac sodium 75 mg PO BID 10 days escitalopram oxalate 5 mg PO DAILY 30 days gabapentin ER (Gralise) 1,800 mg PO DAILY omeprazole 20 mg PO BEDTIME oxycodone-acetaminophen 5-325 mg (Percocet) 1 tab PO DAILY PRN tizanidine 0 mg PO valsartan 40 mg PO ONCE 90 days Tobacco use date assessed: 01/01/24 Dental Screening Dental Screen Date: 01/01/24 Did you have a dental visit in the last 12 months?: Yes Did you have a dental problem in the last 6 months where you did not have access to dental care?: No Was dental information given to patient?: Patient has dentist HPI FMLA Paperwork~ [phone] HPI Details Patient is a 48-year-old gentleman this is a telemedicine video conference to fill his FMLA paperwork Patient will be having total shoulder replacement left side Orthopedic surgeon Dr. Lynch Dates he will be off for recovery are 11/18/2023 until 04/15/2024 If patient needed further time of then orthopedic surgeon can fill the paperwork for him [facility] Medical History Eczema Hypertension Family History Father Myocardial infarct Social History Housing: Other Patient Tobacco Use Status: Former Tobacco user Tobacco use type: Cigarette e-Cigarette/Vaping Use: Never Used service: No Current occupational status: employed Cognitive needs: No Hearing needs: No Vision needs: Yes Questionnaire Thrive Questionnaire Date Thrive assessed: 08/05/23 AUDIT C Alcohol Use Questionnaire (AUDIT-C) 1. How often do you have a drink containing alcohol?: 2-3 times a week 2. How many drinks containing alcohol do you have on a typical day when you are drinking?: 1 or 2 3. How often do you have six or more drinks on one occasion?: Never Total Score: 3 Score Reviewed/Action Taken: Yes ELISA-7 AMB Questionnaire ELISA-7 Date ELISA - 7 assessed: 08/05/23 Source: Developed by Drs. Cale Cisneros, Yasmine Sullivan, Rodney Parisi and colleagues, with an educational juanjose from [email or web address]. Review of Systems Const Denies chills and Denies fever(s) ENT Denies epistaxis and Denies nasal discharge Card Denies chest pain Resp Denies chest congestion, Denies cough and Denies hemoptysis GI Denies diarrhea and Denies nausea Skin/Breast Denies rash Neuro Reports no additional complaints Psych Reports no additional complaints Endo Reports no additional complaints Physical exam (Primary Care) Tobacco/Smoking Status: Tobacco use Status Tobacco use date assessed 01/01/24 01/01/24 09:24 Patient Tobacco Use Status Former Tobacco user 01/01/24 09:24 Tobacco use type Cigarette 01/01/24 09:24 e-Cigarette/Vaping Use Never Used 01/01/24 09:24 Thrive Assessment: Date of Thrive Assessment Date Thrive assessed 08/05/23 01/01/24 09:24 Telehealth Telehealth Telehealth Platform: [facility] Location of provider rendering services: practice address Location of patient: address on file Patient Identification confirmed using: Name, : Yes Telehealth method: video (Attempted) Patient verbally consented to treatment: Yes Patient verbally consented to billing insurance company: Yes Patient informed of any privacy concerns related to visit: Yes Minutes spent on Phone/Video with Pt.: 14 Assessment and Plan Assessment & Plan (1) Acute pain of left shoulder: Code(s): M25.512 - Pain in left shoulder Plan Patient is a 48-year-old gentleman this is a telemedicine video conference to fill his FMLA paperwork Patient will be having total shoulder replacement left side Orthopedic surgeon Dr. Lynch Dates he will be off for recovery are 11/18/2023 until 04/15/2024 If patient needed further time of then orthopedic surgeon can fill the paperwork for him Coding Level of Care Code Tele Est Pt Level 3 (88478) Diagnoses Acute pain of left shoulder M25.869
== END 2024-01-01 11:48 | disposition home or self-care (01) ==
LOC: HO.HMGC 09:21
PROVIDERS: PCP Internal Medicine; Visit Provider Internal Medicine
DX: M25.512 Pain in left shoulder (principal)
CPT/HCPCS: 99213

== ENCOUNTER 2024-02-17 13:04 | Outpatient (AMB) | payer OTHER, SELFPAY ==
[2024-02-17 13:06] VITALS: BP 120/72; PULSE 78; O2SAT 98; BMI 21.6
--- NOTE | 2024-02-17 13:06 | A.OFFPC_ITS ---
Vital Signs 3 02/17/24 13:06 Height 6 ft 1 in Weight 163 lb 8 oz BMI 21.6 BP 120/72 Blood Pressure Location Rt brachial Position Sitting Pulse 78 Pulse Source Pulse Oximeter Pulse Oximetry (%) 98 Oxygen Delivery Method Room Air Intake Visit Reasons: Pre-op visit (shoulder surgery) Allergies ENVIRONMENTAL Allergy (Unknown, Uncoded 03/28/22 12:21) HIVES, WATERY EYES,SNEEZING. Environmental Allergy (Unknown, Uncoded 03/28/22 12:21) unknown Methocarbomal Adverse Reaction (Unknown, Uncoded 03/28/22 12:21) nausea and vomiting Medication List - Last Reconciled 02/17/24 by Cristel Gan MD atenolol 50 mg PO DAILY 90 days [Blood pressure monitor As directed] diclofenac sodium 75 mg PO BID 10 days escitalopram oxalate 5 mg PO DAILY 30 days gabapentin ER (Gralise) 1,800 mg PO DAILY tizanidine 0 mg PO valsartan 40 mg PO ONCE 90 days Tobacco use date assessed: 02/17/24 Dental Screening Dental Screen Date: 02/17/24 Did you have a dental visit in the last 12 months?: Yes Did you have a dental problem in the last 6 months where you did not have access to dental care?: No Was dental information given to patient?: Patient has dentist HPI Pre-op visit (shoulder surgery) 2 HPI0 Details Patient is a 48-year-old gentleman came in today for preop clearance EKG done today shows normal sinus rhythm no acute ST-T changes images included Lab order placed to be done today Patient offers no complaints other than pain in his left shoulder Surgery date is 02/25/2024 by [facility] Dr. Gonzalez Blood pressure is well-controlled Patient is taking his atenolol 50 mg and valsartan 40 mg Continue to smoke marijuana Patient is stable for left shoulder surgery Labs are pending I will create addendum after the report [facility] Medical History Eczema Hypertension Family History Father Myocardial infarct Social History Housing: Other Patient Tobacco Use Status: Former Tobacco user Tobacco use type: Cigarette e-Cigarette/Vaping Use: Never Used service: No Current occupational status: employed Cognitive needs: No Hearing needs: No Vision needs: Yes Questionnaire PHQ-9 Over the last 2 weeks, how often have you been bothered by any of the following problems? 1. Little interest or pleasure in doing things: several days 2. Feeling down, depressed, or hopeless: several days 3. Trouble falling or staying asleep, or sleeping too much: nearly every day 4. Feeling tired or having little energy: several days 5. Poor appetite or overeating: more than half the days 6. Feeling bad about yourself - or that you are a failure or have let yourself or your family down: several days 7. Trouble concentrating on things, such as reading the newspaper or watching television: not at all 8. Moving or speaking so slowly that other people could have noticed. Or the opposite - being so fidgety or restless that you have been moving around a lot more than usual: more than half the days 9. Thoughts that you would be better off or of hurting yourself in some way: not at all Total score: 11 Depression Screening Interpretation: Positive Depression Screening Follow-up: Existing condition and In treatment Depression Screening Done: Yes 48936 - PHQ-9 Billing: Yes Source: Developed by Drs. Cale Cisneros, Yasmine Sullivan, Rodney Parisi and colleagues, with an educational juanjose from [employer]. Thrive Questionnaire Date Thrive assessed: 02/17/24 I am a: Patient What is your living situation today?: I have a steady place to live Within the past 12 months, did the food you bought not last and you didn't have the money to get more?: Often true Within the past 12 months, did you worry whether your food would run out before you got money to buy more?: Sometimes True Do you have trouble paying for medicines?: No Do you have trouble getting transportation to medical appointments?: No Do you have trouble paying your heating and electricity bill?: No Do you have trouble taking care of your child, family member or friend?: No Do you have trouble with day-to-day activities such as bathing, preparing meals, shopping, managing finances, etc.?: Yes Are you currently unemployed and looking for a job?: No Are you interested in more education?: No Please select the resources that you would like help with: None Currently or been in a relationship where the following occur: No concerns reported THRIVE Score: 2 AUDIT C Alcohol Use Questionnaire (AUDIT-C) 1. How often do you have a drink containing alcohol?: 4 or more times a week 2. How many drinks containing alcohol do you have on a typical day when you are drinking?: 1 or 2 3. How often do you have six or more drinks on one occasion?: Never Total Score: 4 Score Reviewed/Action Taken: Yes ELISA-7 AMB Questionnaire ELISA-7 Date ELISA - 7 assessed: 02/17/24 Feeling nervous, anxious, or on edge: 0 = Not at all Not being able to stop or control worryin = Not at all Worrying too much about different things: 1 = Several days Trouble relaxin = More than half the days Being so restless that it is hard to sit still: 1 = Several days Becoming easily annoyed or irritable: 1 = Several days Feeling afraid as if something awful might happen: 1 = Several days Total ELISA-7 score (0-4 normal; 5-9 mild; 10-14 moderate; 15-21 severe): 6 Source: Developed by Drs. Cale Cisneros, Yasmine Sullivan, Rodney Parisi and colleagues, with an educational juanjose from [employer]. ELISA-7 Assessment Billing ELISA-7 Assessment Tool: ELISA-7 Assessment 42780 Review of Systems Const Denies chills and Denies fever(s) ENT Denies epistaxis and Denies nasal discharge Card Denies chest pain Resp Denies chest congestion, Denies cough and Denies hemoptysis GI Denies diarrhea and Denies nausea Skin/Breast Denies rash Neuro Reports no additional complaints Psych Reports no additional complaints Endo Reports no additional complaints Physical exam (Primary Care) Vital Signs: Last Vital Signs Pulse 78 02/17/24 13:06 BP 120/72 02/17/24 13:06 Pulse Ox 98 02/17/24 13:06 Oxygen Delivery Method Room Air 02/17/24 13:06 BMI result Body Mass Index 21.6 Tobacco/Smoking Status: Tobacco use Status Tobacco use date assessed 02/17/24 02/17/24 13:08 Patient Tobacco Use Status Former Tobacco user 02/17/24 13:08 Tobacco use type Cigarette 02/17/24 13:08 e-Cigarette/Vaping Use Never Used 02/17/24 13:08 PHQ-9: PHQ-9 Score PHQ-9: Total score 11 02/17/24 14:23 Depression Screening Interpretation: Positive Depression Screening Follow-up: Existing condition and In treatment Thrive Assessment: Date of Thrive Assessment Date Thrive assessed 02/17/24 02/17/24 13:08 Currently or been in a relationship where the following occur: No concerns reported Const General: cooperative, comfortable and no acute distress Orientation/consciousness: patient oriented x3 HENMT Head: Yes normocephalic Eyes General: appearance normal, both eyes and all related structures Neck Neck: Yes supple Resp Effort & Inspection: normal respiratory effort, no cough and no stridor Cardio Other: Rhythm: regular rhythm Heart sounds: S1 normal heart sound present and S2 normal heart sound present Skin General skin exam: turgor normal Neuro General: patient oriented x3 and tone normal Extrem Other: Keeping left shoulder still Right lower extremity: no edema Left lower extremity: no edema Office Procedures EKG [id number], Complete Assessment and Plan Assessment & Plan (1) Pre-op evaluation: Code(s): Z01.818 - Encounter for other preprocedural examination (2) Acute pain of left shoulder: Code(s): M25.512 - Pain in left shoulder (3) Essential hypertension: Code(s): I10 - Essential (primary) hypertension (4) Anxiety, generalized: Code(s): F41.1 - Generalized anxiety disorder (5) Environmental allergies: Code(s): Z91.09 - Other allergy status, other than to drugs and biological substances (6) Vitamin D deficiency: Code(s): E55.9 - Vitamin D deficiency, unspecified Plan Patient is a 48-year-old gentleman came in today for preop clearance EKG done today shows normal sinus rhythm no acute ST-T changes images included Lab order placed to be done today Patient offers no complaints other than pain in his left shoulder Surgery date is 02/25/2024 by [facility] Dr. Gonzalez Blood pressure is well-controlled Patient is taking his atenolol 50 mg and valsartan 40 mg Continue to smoke marijuana Patient is stable for left shoulder surgery Labs are pending I will create addendum after the report Orders: Orders 2 Complete Blood Count Auto Diff Today E55.9 - Vitamin D deficiency, unspecified, F41.1 - Generalized anxiety disorder, I10 - Essential (primary) hypertension, M25.512 - Pain in left shoulder, Z91.09 - Other allergy status, other than to drugs and biological substances Comprehensive Met. Panel Today E55.9 - Vitamin D deficiency, unspecified, F41.1 - Generalized anxiety disorder, I10 - Essential (primary) hypertension, M25.512 - Pain in left shoulder, Z91.09 - Other allergy status, other than to drugs and biological substances LDL Cholesterol Direct Today E55.9 - Vitamin D deficiency, unspecified, F41.1 - Generalized anxiety disorder, I10 - Essential (primary) hypertension, M25.512 - Pain in left shoulder, Z91.09 - Other allergy status, other than to drugs and biological substances Vitamin D 25-OH (D2 and D3) Today E55.9 - Vitamin D deficiency, unspecified, F41.1 - Generalized anxiety disorder, I10 - Essential (primary) hypertension, M25.512 - Pain in left shoulder, Z91.09 - Other allergy status, other than to drugs and biological substances AMB EKG-In Office Today Z13.6 - Encounter for screening for cardiovascular disorders Medications: Discontinued 2 diclofenac sodium Take medication with food Discontinued Reason: Doctor's Order 75 mg PO BID 10 days 20 tabs 0RF pain Coding Level of Care Code Est Pt Level 4 (44603) Diagnoses Pre-op evaluation Z01.818 Acute pain of left shoulder M25.512 Essential hypertension I10 Anxiety, generalized F41.1 Environmental allergies Z91.09 Vitamin D deficiency E55.9 CPT Codes EKG - CPT: 15477-[id number], Complete ([id number]) Additional Codes ELISA-7 Assessment Billing - ELISA-7 Assessment Tool: ELISA-7 Assessment [id number] ([id number])
== END 2024-02-17 14:39 | disposition home or self-care (01) ==
PROVIDERS: PCP Internal Medicine; Visit Provider Internal Medicine
DX: Z01.818 Encounter for other preprocedural examination (principal); M25.512 Pain in left shoulder; I10 Essential (primary) hypertension; F41.1 Generalized anxiety disorder; Z91.09 Other allergy status, other than to drugs and biological substances; E55.9 Vitamin D deficiency, unspecified
CPT/HCPCS: 93000; 99214

== ENCOUNTER 2024-02-17 13:28 | Outpatient (REF) | payer OTHER, SELFPAY ==
[2024-02-17 16:18] LABS: MANUAL DIFF FLAG NO
[2024-02-17 16:25] LABS: Basophils Absolute Auto 0.1 X10*3/uL (0.0-0.2); Basophils Percent Auto 0.8 % (0-2); Eosinophils Absolute Auto 0.1 X10*3/uL (0.0-0.4); Eosinophils Percent Auto 1.5 % (0-4); Hematocrit 39.1 % (42.0-52.0); Hemoglobin 13.1 g/dl (14.0-18.0); Imm Gran Abs Auto 0.03 X10*3/uL (0.00-0.03); Imm Gran Pct Auto 0.4 % (0.0-0.4); Lymphocytes Percent Auto 13.4 % (20-40); Mean Corpuscular HGB Conc 33.5 g/dl (31.0-36.0); Mean Corpuscular Hemoglobin 34.7 pg (27.0-33.0); Mean Corpuscular Volume 103.7 fL (80.0-98.0); Mean Platelet Volume 10.5 fL (9.4-12.4); Monocytes Absolute Auto 0.8 X10*3/uL (0.1-1.2); Monocytes Percent Auto 11.2 % (2-11); Neutrophils Absolute Auto 5.2 x10*3/uL (2.0-8.3); Neutrophils Percent Auto 72.7 % (45-73); Platelet Count 410 X10*3/uL (160-400); Red Blood Count 3.77 X10*6/uL (4.60-5.80); Red Cell Distribution Width 12.3 % (11.0-16.0); White Blood Count 7.2 X10*3/uL (4.8-10.8)
[2024-02-17 16:41] LABS: Alanine Aminotransferase 13 U/L (0-40); Albumin Level 3.9 g/dL (3.5-5.0); Alkaline Phosphatase 95 U/L (39-117); Anion Gap 14 (12-20); Aspartate Amino Transferase 15 U/L (5-37); Bilirubin Total 0.5 mg/dL (0.0-1.0); Blood Urea Nitrogen 16 mg/dL (9-16); Calcium 10.3 mg/dL (8.4-10.2); Carbon Dioxide 25 mmol/L (22-29); Chloride 100 mmol/L (96-108); Estimated Glomerular Filt Rate > 60; Glucose Random 85 mg/dL (60-115); Potassium 4.4 mmol/L (3.3-5.1); Sodium 135 mmol/L (135-145); Total Protein 8.1 g/dL (6.5-8.0)
[2024-02-18 21:54] LABS: LDL Cholesterol Direct 77 mg/dL (<100)
[2024-02-21 16:09] LABS: Vitamin D 25-OH, D2 <4 ng/mL; Vitamin D 25-OH, D3 43 ng/mL; Vitamin D 25-OH, Total 43 ng/mL (30-100)
== END 2024-02-17 13:29 | disposition home or self-care (01) ==
LOC: HO.HMGCLDS 13:28
PROVIDERS: PCP Internal Medicine; Visit Provider Internal Medicine
DX: Z00.01 Encounter for general adult medical examination with abnormal findings (principal); I10 Essential (primary) hypertension; M20.10 Hallux valgus (acquired), unspecified foot; E55.9 Vitamin D deficiency, unspecified; M25.512 Pain in left shoulder; F41.1 Generalized anxiety disorder; Z91.09 Other allergy status, other than to drugs and biological substances
CPT/HCPCS: 36415; 80053; 82306; 83721; 85025